=== PATIENT | male | born 1995 | race Two or more races ===

== ENCOUNTER 2016-10-19 22:30 | Emergency (ER) | payer SELFPAY ==
[~2016-10-19] VITALS: Ht 170.2 cm; Wt 65.8 kg
--- NOTE | 2016-10-19 23:19 | PHYS DOC ---
Adult General Chief Complaint Chief Complaint: SORE THROAT HPI HPI Patient is a 21 year old male presents to the emergency department with a two- week history of sore throat. He has been running fever. States he is readily taking fluids. No vomiting, no diarrhea Review of Systems Review of Systems Constitutional: Fever Eyes: Denies change in visual acuity, redness, or eye pain [] HENT: Sore throat Respiratory: Denies cough or shortness of breath [] Cardiovascular: No additional information not addressed in HPI [] GI: Denies abdominal pain, nausea, vomiting, bloody stools or diarrhea [] : Denies dysuria or hematuria [] Musculoskeletal: Denies back pain or joint pain [] Integument: Denies rash or skin lesions [] Neurologic: Denies headache, focal weakness or sensory changes [] Endocrine: Denies polyuria or polydipsia [] Physical Exam Physical Exam Constitutional: Well developed, well nourished, no acute distress, non-toxic appearance, voice is muffled. [] HENT: Normocephalic, atraumatic, bilateral external ears normal, posterior pharynx erythematous with exudate, tonsils are 2+, uvula midline. Eyes: PERRLA, EOMI, conjunctiva normal, no discharge. [] Neck: Normal range of motion, no tenderness, supple, anterior cervical lymphadenopathy. Cardiovascular:Heart rate regular rhythm, no murmur [] Lungs & Thorax: Bilateral breath sounds clear to auscultation [] Abdomen: Bowel sounds normal, soft, no tenderness, no masses, no pulsatile masses. [] Skin: Warm, dry, no erythema, no rash. [] Back: No tenderness, no CVA tenderness. [] Extremities: No tenderness, no cyanosis, no clubbing, ROM intact, no edema. [] Neurologic: Alert and oriented X 3, normal motor function, normal sensory function, no focal deficits noted. [] Psychologic: Affect normal, judgement normal, mood normal. [] EKG EKG [] Radiology/Procedures Radiology/Procedures [] Course & Med Decision Making Course & Med Decision Making I elected to treat this patient based on fever, posterior vertex erythematous with exudate, muffled voice, strep exposure. Pertinent Labs and Imaging studies reviewed. (See chart for details) [] Dragon Disclaimer Dragon Disclaimer This electronic medical record was generated, in whole or in part, using a voice recognition dictation system. Departure Departure Impression: Primary Impression: Pharyngitis Disposition: HOME, SELF-CARE Condition: STABLE Referrals: [facility] PCP [facility]PCP) [facility] Patient Instructions: Viral and Bacterial Pharyngitis Additional Instructions: Magic mouthwash as labeled and is indicated for symptom management. Continue to use Tylenol alternating with ibuprofen for management of fever. Follow-up with your primary care provider or the physician referral for an reevaluation within one week. Problem Qualifiers Primary Impression: Pharyngitis Pharyngitis/tonsillitis etiology: unspecified etiology Qualified Codes: J02.9 - Acute pharyngitis, unspecified ABRAN DE LA CRUZ [employer] Oct 19, 2016 23:19
[2016-10-19 23:25] VITALS: BP 132/64
[2016-10-19] MEDS ORDERED: IBUPROFEN 600 MG TABLET. PO ONE (23:30)
[2016-10-19] MEDS ORDERED: PENICILLIN G BENZATHINE LA 1,200,000 UNIT/2 ML DISP.SYRIN. IM ONE (23:30)
== END 2016-10-20 00:17 | disposition home or self-care (01) ==
LOC: ER 22:30
DX: J02.9 Acute pharyngitis, unspecified (principal)
CPT/HCPCS: 96372; 99283; J0561